=== PATIENT | female | born 1990 | race Caucasian/White ===

== ENCOUNTER 2019-06-07 06:43 | Day surgery (SDC) | payer BC ==
[~2019-06-07 06:43] MED LIST: Lactated Ringers 1,000 ML IV SCH; Sodium Chloride 0.9% 10 ML SDV IV PRN; Sodium Chloride 0.9% 10 ML Syringe FLUSH PRN; Sodium Chloride 0.9% 2.5 ML Syringe FLUSH PRN
[2019-06-07] MEDS ORDERED: Midazolam 1 MG/ML 2 ML SDV ONE (07:02)
[2019-06-07] MEDS ORDERED: Lidocaine 2% 5 ML SDV ONE (07:02)
[2019-06-07] MEDS ORDERED: fentaNYL 100 MCG/2 ML SDV ONE (07:02)
[2019-06-07] MEDS ORDERED: Propofol 200 MG/20 ML SDV ONE ×2 (07:02→08:28)
--- NOTE | 2019-06-07 07:25 | PCM.PREANE ---
Preanesthetic Assessment - Anesthesia/Transfusion/Family Hx Anesthesia History: Prior Anesthesia Without Reaction Type of Anesthesia Reaction: Excessive Nausea/Vomiting Family History of Anesthesia Reaction: No Transfusion History: No Prior Transfusion(s) - Review of Systems General: No Symptoms Pulmonary: No Symptoms Cardiovascular: No Symptoms Gastrointestinal: No Symptoms Neurological: No Symptoms Other: Reports: None - Physical Assessment NPO Status Date: 06/06/19 Vital Signs: Last Vital Signs Temp 99.0 F 06/07/19 06:50 Pulse 64 06/07/19 06:50 Resp 16 06/07/19 06:50 BP 122/58 L 06/07/19 06:50 Pulse Ox 99 06/07/19 06:50 Height: 5 ft 5.75 in Weight: 65.771 kg ASA Class: 1 Mental Status: Alert & Oriented x3 Airway Class: Mallampati = 2 Dentition: Reports: Normal Dentition ROM/Head Extension: Full Lungs: Clear to Auscultation, Normal Respiratory Effort Cardiovascular: Regular Rate, Regular Rhythm - Lab Values: Laboratory Last Values WBC 3.93 K/uL (4.0-11.0) L 06/07/19 07:06 RBC 4.14 M/uL (4.30-5.90) L 06/07/19 07:06 Hgb 12.7 g/dL (12.0-16.0) 06/07/19 07:06 Hct 37.9 % (36.0-46.0) 06/07/19 07:06 MCV 91.5 fL (80.0-98.0) 06/07/19 07:06 MCH 30.7 pg (27.0-32.0) 06/07/19 07:06 MCHC 33.5 g/dL (31.0-37.0) 06/07/19 07:06 RDW Std Deviation 43.4 fl (28.0-62.0) 06/07/19 07:06 RDW Coeff of Marti 13 % (11.0-15.0) 06/07/19 07:06 Plt Count 235 K/uL (150-400) 06/07/19 07:06 MPV 9.90 fL (7.40-12.00) 06/07/19 07:06 Nucleated RBC % 0.0 /100WBC 06/07/19 07:06 Nucleated RBCs # 0 K/uL 06/07/19 07:06 - Allergies Allergies/Adverse Reactions: Allergies Allergy/AdvReac Type Severity Reaction Status Date / Time No Known Allergies Allergy Verified 06/03/19 16:25 - Blood Blood Available: No - Anesthesia Plan Pre-Op Medication Ordered: None - Acknowledgements Anesthesia Type Planned: General Anesthesia Pt an Appropriate Candidate for the Planned Anesthesia: Yes Alternatives and Risks of Anesthesia Discussed w Pt/Guardian: Yes Pt/Guardian Understands and Agrees with Anesthesia Plan: Yes PreAnesthesia Questionnaire Genitourinary History: Reports: None 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 [No Known Home Meds] 06/03/19 [History] - CURRENT (IN HOUSE) MEDS Current Meds: Current Medications Lactated Ringer's (Ringers, Lactated) 1,000 mls @ 100 mls/hr IV ASDIRECTED ANTONIO Last Admin: 06/07/19 07:19 Dose: 100 mls/hr Sodium Chloride (Saline Flush) 10 ml FLUSH ASDIRECTED PRN PRN Reason: Keep Vein Open Sodium Chloride (Saline Flush) 2.5 ml FLUSH ASDIRECTED PRN PRN Reason: Keep Vein Open Sodium Chloride (Normal Saline) 10 ml IV ASDIRECTED PRN PRN Reason: IV Use Discontinued Medications Fentanyl (Sublimaze) Confirm Administered Dose 100 mcg .ROUTE .STK-MED ONE Stop: 06/07/19 07:03 Lidocaine (Xylocaine-Mpf 2%) Confirm Administered Dose 5 ml .ROUTE .STK-MED ONE Stop: 06/07/19 07:03 Midazolam HCl (Versed 1 Mg/Ml) Confirm Administered Dose 2 mg .ROUTE .STK-MED ONE Stop: 06/07/19 07:03 Propofol (Diprivan 20 Ml) Confirm Administered Dose 400 mg .ROUTE .STK-MED ONE Stop: 06/07/19 07:03
[2019-06-07 07:28] LABS: BLOOD UREA NITROGEN,BUN 12 mg/dL (7.0-18.0); CARBON DIOXIDE,CO2 26.2 mmol/L (21.0-32.0); CHLORIDE,CL 107 mmol/L (98-107); GLUCOSE RANDOM 85 mg/dL (74-106); POTASSIUM,K 4.1 mmol/L (3.5-5.1); SODIUM,NA 142 mmol/L (136-145)
[2019-06-07] MEDS ORDERED: 50% Dextrose in Water 50 ML Syringe IVPUSH PRN (08:09)
[2019-06-07] MEDS ORDERED: Naloxone 0.4 MG/ML Syringe IVPUSH PRN (08:09)
[2019-06-07] MEDS ORDERED: Atropine 0.1 MG/ML 10 ML Syringe IVPUSH PRN ×2 (08:09)
[2019-06-07] MEDS ORDERED: EPINEPHrine 1:10,000 1 MG/10 ML Syringe IVPUSH PRN (08:09)
[2019-06-07] MEDS ORDERED: fentaNYL 100 MCG/2 ML SDV IVPUSH PRN (08:09)
[2019-06-07] MEDS ORDERED: Albuterol 0.083% 2.5 MG/3 ML Neb Soln NEB PRN (08:09)
[2019-06-07] MEDS ORDERED: Ondansetron 4 MG/2 ML SDV ONE (08:11)
[2019-06-07] MEDS ORDERED: Ketorolac 30 MG/ML SDV IVPUSH ONE (08:39)
--- NOTE | 2019-06-07 12:19 | PCM.POSTAN ---
POST ANESTHESIA ASSESSMENT - MENTAL STATUS Mental Status: Alert, Oriented - VITAL SIGNS Vital Signs: Last Vital Signs Temp 100.2 F 06/07/19 09:20 Pulse 56 L 06/07/19 09:45 Resp 16 06/07/19 09:45 BP 102/56 L 06/07/19 09:45 Pulse Ox 97 06/07/19 09:45 - RESPIRATORY Respiratory Status: Respiratory Rate WNL, Airway Patent, O2 Saturation Stable - CARDIOVASCULAR CV Status: Pulse Rate WNL, Blood Pressure Stable - GASTROINTESTINAL GI Status: No Symptoms - POST OP HYDRATION Hydration Status: Adequate & Stable
--- NOTE | 2019-06-07 12:20 | PCM48HPAN ---
Post Anesthesia Note - EVALUATION WITHIN 48HRS OF ANESTHETIC Vital Signs in Normal Range: Yes Patient Participated in Evaluation: Yes Respiratory Function Stable: Yes Airway Patent: Yes Cardiovascular Function Stable: Yes Hydration Status Stable: Yes Pain Control Satisfactory: Yes Nausea and Vomiting Control Satisfactory: Yes Mental Status Recovered: Yes Vital Signs: Last Vital Signs Temp 100.2 F 06/07/19 09:20 Pulse 56 L 06/07/19 09:45 Resp 16 06/07/19 09:45 BP 102/56 L 06/07/19 09:45 Pulse Ox 97 06/07/19 09:45
--- NOTE | 2019-06-07 13:21 | OR ---
DATE OF PROCEDURE: 06/07/2019 INDICATION: A 28-year-old female with history of HSIL Pap and positive HPV, status post colposcopy and biopsies that showed MARV 2 pathology. Discussed management options with the patient and decision made to proceed with LEEP procedure. PREOPERATIVE DIAGNOSIS: Cervical intraepithelial neoplasia 2 cervical dysplasia. POSTOPERATIVE DIAGNOSIS: Cervical intraepithelial neoplasia 2 cervical dysplasia. SURGEON: Fantasma Tariq MD PROCEDURE PERFORMED: Loop electrosurgical excision procedure. ANESTHESIOLOGIST: Dr. Isaiah Osorio. ANESTHESIA TYPE: Monitored Anesthesia Care ESTIMATED BLOOD LOSS: 15 mL. FINDINGS: Cervix had mild dysplastic changes from the 11 to 2 o'clock area, otherwise normal appearing. DESCRIPTION OF PROCEDURE: The procedure was explained to the patient. Risks of bleeding, infection, DVTs, and injury to surrounding organs were discussed. Questions were answered and consent was signed. The patient was brought to the operating room and sedation was applied. She was placed in dorsal lithotomy position with her legs supported using stirrups. Bimanual exam was performed. The uterus was normal sized, anteverted, and mobile. The vagina and external genitalia were normal appearing. Speculum was placed in the posterior vagina. The cervix had mild dysplastic area from 11 to 1 o' clock area confirmed previously on colposcopy with biopsies. The remaining cervix was grossly normal appearing. A 25 mm x 15 mm cautery loop was used to remove a cone of the cervix from the 12 o'clock to the 6 o'clock area. The specimen was tagged at 12 o'clock. A smaller portion of the tissue was amputated around 9 o'clock and was removed separately and sent to pathology. The cautery was then used to remove a remaining portion in the lower cervix around the 5 to 8 o'clock area and also sent to pathology. There was small amount of bleeding. Ball cautery was used to cauterize the incision site. Hemostasis was confirmed. Monsel's solution was placed over the incision. The speculum was removed. No additional injuries to the vagina was noted. The patient was cleaned and taken out of dorsal lithotomy position. She was awakened from anesthesia, in stable condition. FRANCO / TRINY /[id number] PAULINA
== END 2019-06-07 10:15 | disposition home or self-care (01) ==
LOC: MW.SDS 06:43
PROVIDERS: ATTEND Obstetrics & Gynecology
DX: N87.1 Moderate cervical dysplasia (principal); Z98.890 Other specified postprocedural states
CPT/HCPCS: 36415; 57522; 80048; 85027; J1885; J2001; J2250; J2405; J2704; J3010; J7120; 00940; 88305; 88307

== ENCOUNTER 2019-08-03 11:55 | Emergency (ER) | payer BC ==
[2019-08-03] MEDS ORDERED: LORazepam 0.5 MG Tab PO ONE (12:10)
[2019-08-03] MEDS ORDERED: methylPREDNISolone Sodium Succinate 125 MG/2 ML SDV IM ONE (12:10)
--- NOTE | 2019-08-03 12:18 | EDM.PDOC ---
ED HPI GENERAL MEDICAL PROBLEM - General Chief Complaint: Behavioral/Psych Stated Complaint: SOB/PANIC ATTACK Time Seen by Provider: 08/03/19 12:05 Source of Information: Reports: Patient History Limitations: Reports: No Limitations - History of Present Illness INITIAL COMMENTS - FREE TEXT/NARRATIVE: HISTORY AND PHYSICAL: History of present illness: Patient is a 28-year-old female who presents to the emergency room with complaints of shortness of breath and sensation of her throat closing. She had a breast augmentation on 08/01/2019 in [place]. She was discharged with prescription for Keflex, Mesquite and Flexeril. She had been taking the Keflex and Mesquite over the past 2 days without any problem. Last took her [place] and Keflex this morning at 7 AM. She took a Flexeril at 11 AM and shortly after started to have some shortness of breath and sensation of her throat closing. She is unsure if she is having an anxiety attack because she has a sensation of heaviness from her implants, does have a history of panic attacks. She was concerned she may be having an allergic reaction to the Flexeril as she has not taken this medication before. Patient denies any fever, chills, headache, change in vision, no difficulty swallowing, and no drooling. Denies any chest pain, back pain or cough. Denies any abdominal pain, nausea, vomiting, diarrhea , constipation or dysuria. Denies any chance of . Patient has been eating and drinking appropriately. Review of systems: As per history of present illness and below otherwise all systems reviewed and negative. Past medical history: As per history of present illness and as reviewed below otherwise noncontributory. Surgical history: As per history of present illness and as reviewed below otherwise noncontributory. Social history: See social history for further information Family history: As per history of present illness and as reviewed below otherwise noncontributory. Physical exam: General: Well-developed and well-nourished 28-year-old female. Alert and oriented. Tearful, anxious appearing, nontoxic but in no acute distress. HEENT: Atraumatic, normocephalic, pupils equal and reactive bilaterally, negative for conjunctival pallor or scleral icterus, mucous membranes moist, throat clear without any soft tissue swelling, neck supple, nontender, trachea midline. No drooling or trismus noted. No meningeal signs. No hot potato voice noted. Lungs: Clear to auscultation, breath sounds equal bilaterally, chest nontender. Heart: S1S2, regular rate and rhythm without overt murmur Abdomen: Soft, nondistended, nontender. Negative for masses or hepatosplenomegaly. Negative for costovertebral tenderness. Skin: Intact, warm, dry. No lesions or rashes noted. Extremities: Atraumatic, moves all extremities per self without difficulty or deficits, negative for cords or calf pain. Neurovascular unremarkable. Neuro: Awake, alert, oriented. Cranial nerves II through XII unremarkable. Cerebellum unremarkable. Motor and sensory unremarkable throughout. Exam nonfocal. Notes: We did discuss doing basic lab work which she declines at this time (can't rule out a PE), she states she needs to leave to go with her to work. She reports she feels improved and is currently asymptomatic. We discussed signs and symptoms that would prompt her to return to the ED, she is aware and accepts risks. Supportive care measures were reviewed and discussed. Voices understanding and is agreeable to plan of care. Denies any further questions or concerns at this time. Diagnostics: None Therapeutics: Solu-Medrol IM, ativan Prescription: None Impression: Panic Attack Plan: 1. Continue to monitor your symptoms. 2. While symptomatic continue to routinely take Benadryl as directed. You had Ativan and Solumedrol (steroid) while here. 3. Please follow up with your Primary care doctor as we discussed. Return to the ED as needed and as discussed. Definitive disposition and diagnosis as appropriate pending reevaluation and review of above. 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 Musculoskeletal History: Reports: None Neurological History: Reports: None Psychiatric History: Reports: None Endocrine/Metabolic History: Reports: None Hematologic History: Reports: None Immunologic History: Reports: None Oncologic (Cancer) History: Reports: None Dermatologic History: Reports: None - Infectious Disease History Infectious Disease History: Reports: None - Past Surgical History Head Surgeries/Procedures: Reports: None HEENT Surgical History: Reports: None Cardiovascular Surgical History: Reports: None Respiratory Surgical History: Reports: None GI Surgical History: Reports: None Female Surgical History: Reports: Breast Implant Endocrine Surgical History: Reports: None Neurological Surgical History: Reports: None Musculoskeletal Surgical History: Reports: None Oncologic Surgical History: Reports: None Dermatological Surgical History: Reports: None Social & Family History - Family History Family Medical History: Noncontributory - Tobacco Use Smoking Status *Q: Never Smoker Second Hand Smoke Exposure: No - Caffeine Use Caffeine Use: Reports: Coffee - Recreational Drug Use Recreational Drug Use: No ED ROS GENERAL - Review of Systems Review Of Systems: Comprehensive ROS is negative, except as noted in HPI. ED EXAM, GENERAL - Physical Exam Exam: See Below (See dictation) Course - Vital Signs Last Recorded V/S: Last Vital Signs Temp 97.5 F 08/03/19 12:03 Pulse 81 08/03/19 12:03 Resp 18 08/03/19 12:03 BP 130/71 08/03/19 12:03 Pulse Ox 98 08/03/19 12:03 - Orders/Labs/Meds Meds: Medications Discontinued Medications Generic Name Dose Route Start Last Admin Trade Name Freq PRN Reason Stop Dose Admin Lorazepam 0.5 mg 08/03/19 12:10 08/03/19 12:23 Ativan PO 08/03/19 12:11 0.5 mg ONETIME ONE Administration Methylprednisolone Sodium Succinate 125 mg 08/03/19 12:10 08/03/19 12:23 Solu-Medrol IM 08/03/19 12:11 125 mg ONETIME ONE Administration Departure - Departure Time of Disposition: 12:57 Disposition: Home, Self-Care 01 Clinical Impression: Panic attack - Discharge Information Instructions: Panic Attack, [id number] Forms: ED Department Discharge Additional Instructions: The following information is given to patients seen in the emergency department who are being discharged to home. This information is to outline your options for follow-up care. We provide all patients seen in our emergency department with a follow-up referral. The need for follow-up, as well as the timing and circumstances, are variable depending upon the specifics of your emergency department visit. If you don't have a primary care physician on staff, we will provide you with a referral. We always advise you to contact your personal physician following an emergency department visit to inform them of the circumstance of the visit and for follow-up with them and/or the need for any referrals to a consulting specialist. The emergency department will also refer you to a specialist when appropriate. This referral assures that you have the opportunity for follow-up care with a specialist. All of these measure are taken in an effort to provide you with optimal care, which includes your follow-up. Under all circumstances we always encourage you to contact your private physician who remains a resource for coordinating your care. When calling for follow-up care, please make the office aware that this follow-up is from your recent emergency room visit. If for any reason you are refused follow-up, please contact the Emergency Department at and asked to speak to the emergency department charge nurse. [facility] [address] [place] [address] [id number] 1. Continue to monitor your symptoms. 2. While symptomatic continue to routinely take Benadryl as directed. You had Ativan and Solumedrol (steroid) while here. 3. Please follow up with your Primary care doctor as we discussed. Return to the ED as needed and as discussed. Sepsis Event Note - Evaluation Sepsis Screening Result: No Definite Risk - Focused Exam Vital Signs: Vital Signs Temp Pulse Resp BP Pulse Ox 08/03/19 12:03 97.5 F 81 18 130/71 98 Date Exam was Performed: 08/03/19 Time Exam was Performed: 12:55
== END 2019-08-03 13:06 | disposition home or self-care (01) ==
LOC: MERGE 11:55 → MW.ED 11:55
DX: F41.0 Panic disorder [episodic paroxysmal anxiety] (principal)
CPT/HCPCS: 96372; 99284; A9270; J2930; 99282

== ENCOUNTER 2021-04-24 10:29 | Emergency (ER) | payer BC ==
[2021-04-24] MEDS ORDERED: Sodium Chloride 0.9% 1,000 ML IV ONE (11:04)
[2021-04-24] MEDS ORDERED: Ondansetron 4 MG/2 ML SDV IVPUSH ONE (11:04)
[2021-04-24] MEDS ORDERED: Sodium Chloride 0.9% 2.5 ML Syringe FLUSH PRN (11:04)
[2021-04-24] MEDS ORDERED: Ketorolac 30 MG/ML SDV IVPUSH ONE (11:04)
[2021-04-24] MEDS ORDERED: Sodium Chloride 0.9% 10 ML Syringe FLUSH PRN (11:04)
[2021-04-24 11:43] LABS: CORONAVIRUS COVID-19 NAA POSITIVE (NEGATIVE); INFLUENZA A NAA NEGATIVE (NEGATIVE); INFLUENZA B NAA NEGATIVE (NEGATIVE)
[2021-04-24 12:23] LABS: BLOOD UREA NITROGEN,BUN 14 mg/dL (7.0-18.0); CARBON DIOXIDE,CO2 22.7 mmol/L (21.0-32.0); CHLORIDE,CL 99 mmol/L (98-107); GLUCOSE RANDOM 77 mg/dL (74-106); POTASSIUM,K 4.2 mmol/L (3.5-5.1); SODIUM,NA 134 mmol/L (136-145)
== END 2021-04-24 13:29 | disposition home or self-care (01) ==
LOC: MW.ED 10:29
DX: U07.1 COVID-19 (principal); Z87.891 Personal history of nicotine dependence
CPT/HCPCS: 0240U; 36415; 80053; 85025; 96374; 96375; 99284; J1885; J2405; J7030

== ENCOUNTER 2022-06-11 19:23 | Emergency (ER) | payer BC ==
[2022-06-11] MEDS ORDERED: Sodium Chloride 0.9% 10 ML Syringe FLUSH PRN (19:25)
[2022-06-11] MEDS ORDERED: Sodium Chloride 0.9% 2.5 ML Syringe FLUSH PRN (19:25)
[2022-06-11] MEDS ORDERED: Sodium Chloride 0.9% 1,000 ML IV STA ×2 (19:26→21:11)
[2022-06-11] MEDS ORDERED: Thiamine 100 MG in Sodium Chloride 0.9% 100 ML IV STA (19:58)
[2022-06-11 19:59] LABS: CARBON DIOXIDE,CO2 26.5 mmol/L (21.0-32.0); POTASSIUM,K 3.9 mmol/L (3.5-5.1)
[2022-06-11] MEDS ORDERED: Magnesium Sulfate/Water 2 GM in Premix Bag 1 BAG IV STA (19:59)
[2022-06-11] MEDS ORDERED: LORazepam 2 MG/ML SDV IVPUSH STA (20:16)
== END 2022-06-11 21:36 | disposition left against medical advice (07) ==
LOC: MW.ED 19:23
DX: F10.129 Alcohol abuse with intoxication, unspecified (principal)
CPT/HCPCS: 36415; 80053; 80305; 80307; 81001; 81025; 83690; 85025; 96361; 96365; 96367; 96375; 99284; J2060; J3411; J3475; J3490; J7030